=== PATIENT | female | born 1995 | race Asian ===

== ENCOUNTER 2016-04-04 13:10 | Emergency (ER) | payer OTHER ==
[~2016-04-04] VITALS: Ht 158.8 cm; Wt 54.0 kg
[2016-04-04 13:23] VITALS: TEMP 37.9; Ht 158.8 cm; Wt 54.0 kg
[2016-04-04] MEDS ORDERED: SODIUM CHLORIDE 0.9% 1000ML 1,000 ML IV STA (16:07)
[2016-04-04] MEDS ORDERED: ACETAMINOPHEN 325 MG TAB PO STA (16:07)
[2016-04-04 16:29] LABS: URINE APPEARANCE CLEAR (CLEAR); URINE BILIRUBIN NEG (NEG); URINE COLOR YELLOW; URINE EPITHELIAL CELL AUTO >30 /lpf (0-5); URINE NITRITE NEG (NEG); URINE SPECIFIC GRAVITY 1.007 (1.000-1.030); UROBILINOGEN NEG (NEG)
[2016-04-04] MEDS ORDERED: MoRPHine SULFATE 4 MG/ML 1 ML CARP\\VIAL IV STA (16:32)
[2016-04-04] MEDS ORDERED: ONDANSETRON INJ 2 MG/ML 2 ML VIAL IV STA (16:32)
[2016-04-04 16:34] LABS: MANUAL MICROSCOPIC REQUIRED? NO; REVIEW REQ? YES
[2016-04-04 17:00] LABS: BASO % 0.2 %; BASO ABS # 0.01 K/uL (0-0.2); COMPLETE YES; EOS % 0.6 %; IG% 0.2 %; LYMPH % 21.6 %; LYMPH ABS # 1.41 K/uL (1.2-3.4); MEAN CELL VOLUME 81.4 fL (80-100); MEAN CORPUSCULAR HGB CONC 33.2 g/dl (32-36); MONO % 7.6 %; NEUT % 69.8 %; PLATELET COUNT 273 K/uL (130-400); RED BLOOD COUNT 4.67 M/uL (4.2-5.4); WHITE BLOOD COUNT 6.54 K/uL (4.8-10.8)
[2016-04-04 17:07] LABS: PARTIAL THROMBOPLASTIN RATIO 1.2; PROTHROMBIN TIME (PATIENT) 10.7 SECONDS (9.0-12.0)
[2016-04-04 17:20] LABS: BUN/CREATININE RATIO 9.6 (10-20); CREATININE 0.94 mg/dl (0.60-1.20); POTASSIUM 3.4 mmol/L (3.5-5.1)
--- NOTE | 2016-04-04 17:36 | DIAGNOSTIC IMAGING REPORT ---
RENAL ULTRASOUND HISTORY: Flank pain eval for right kidney stone COMPARISON: None. FINDINGS: Right kidney: Maximum dimension 10.6 cm. No evidence for hydronephrosis. Normal corticomedullary differentiation and cortical thickness. Left kidney: Maximum dimension 9.9 cm. No evidence for hydronephrosis. Normal corticomedullary differentiation and cortical thickness. Bladder: No bladder wall thickening. The bilateral ureteral jets were identified. IMPRESSION: Normal renal ultrasound. No evidence for hydronephrosis. No shadowing calcifications. Electronically signed by: Errol Hicks M.D. 04/04/2016 5:35 PM Dictated Date/Time: 04/04/2016 5:34 PM
[2016-04-04] MEDS ORDERED: CEFTRIAXONE SOD INJ 1 GM ADDVIAL IV STA (18:01)
[2016-04-04] MEDS ORDERED: AMOX875T PO (18:03)
--- NOTE | 2016-04-04 18:22 | EMERGENCY ROOM VISIT NOTE ---
History Report prepared by Sarah: Gem Thompson Under the Supervision of: Dr. Romeo Gamino M.D. First contact with patient: 15:55 Chief Complaint: FEVER Stated Complaint: FEVER, UTI, RT SIDE PAIN History of Present Illness The patient is a 21 year old female who presents to the Emergency Room with complaints of right sided flank pain that began around 1200 yesterday. She currently rates her discomfort as a 6/10 in severity. The patient states that the pain has been persistent. She states that she took Advil around 0200 which slightly alleviated her symptoms. The patient denies any history of kidney stones. She states that the pain has been so severe that it has caused her to have difficulty sleeping. The patient states that she woke up this morning with a fever. She additionally notes a headache from the fever and chills. The patient denies any cough, vomiting, body aches, or pain with urination. The patient states that in February she was treated with Cipro for seven days for a UTI that showed Leukocytes, nitrates, blood, and grew out Ecoli that is pansensitive. She states that yesterday she visited [facility] and gave a UA that showed 2+ Leukocytes and greater than 30 white blood cells and was prescribed Macrobid. 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 Source of History: patient Onset: 1200 yesterday Position: other (right flank) Symptom Intensity: 6/10 Timing: other (persistent) Associated Symptoms: + chills, + fevers, + headache, No cough, No vomiting Review of Systems See HPI for pertinent positives & negatives. A total of 10 systems reviewed and were otherwise negative. Past Medical & Surgical Medical Problems: (1) Hepatitis B Family History No pertinent family history stated. Social History Smoking Status: Never Smoker Occupation Status: [employer] student Current/Historical Medications Scheduled Amoxicillin & Pot Clavulanate (Augmentin 875-125 mg), 875 MG PO BID Allergies Coded Allergies: No Known Allergies (Unverified , 04/04/16) Physical Exam Vital Signs Date Time Temp Pulse Resp B/P Pulse Ox O2 Delivery O2 Flow Rate FiO2 04/04/16 17:51 83 18 94/55 96 Room Air 04/04/16 16:09 115 16 128/77 98 Room Air 04/04/16 13:23 37.9 100 18 124/85 95 Room Air Physical Exam Constitutional: Vital signs reviewed. Eyes: Pupils are equal round reactive to light. Conjunctiva are noninjected. ENT: Pharynx is clear without erythema or exudate. Mucous membranes are moist. Neck supple without meningeal signs. Respiratory: Clear to auscultation bilaterally. Breath sounds are equal bilaterally. Cardiovascular: Regular rate and rhythm. No rubs or gallops. GI: Soft, nondistended and nontender. Bowel sounds are present. Musculoskeletal: No peripheral edema. No CVA tenderness. Integumentary: No cyanosis. Neurological: The patient is awake and alert. No focal deficits. Psychiatric: Normal affect. Medical Decision & Procedures ER Provider Diagnostic Interpretation: US results as stated below per my review and radiologist interpretation. RENAL ULTRASOUND HISTORY: Flank pain eval for right kidney stone COMPARISON: None. FINDINGS: Right kidney: Maximum dimension 10.6 cm. No evidence for hydronephrosis. Normal corticomedullary differentiation and cortical thickness. Left kidney: Maximum dimension 9.9 cm. No evidence for hydronephrosis. Normal corticomedullary differentiation and cortical thickness. Bladder: No bladder wall thickening. The bilateral ureteral jets were identified. IMPRESSION: Normal renal ultrasound. No evidence for hydronephrosis. No shadowing calcifications. Electronically signed by: Errol Hicks M.D. 04/04/2016 5:35 PM Dictated Date/Time: 04/04/2016 5:34 PM Laboratory Results 04/04/16 16:33 Red Blood Count 4.67, Mean Corpuscular Volume 81.4, Mean Corpuscular Hemoglobin 27.0, Mean Corpuscular Hemoglobin Concent 33.2, Mean Platelet Volume 11.0, Neutrophils (%) (Auto) 69.8, Lymphocytes (%) (Auto) 21.6, Monocytes (%) (Auto) 7.6, Eosinophils (%) (Auto) 0.6, Basophils (%) (Auto) 0.2, Neutrophils # (Auto) 4.57, Lymphocytes # (Auto) 1.41, Monocytes # (Auto) 0.50, Eosinophils # (Auto) 0.04, Basophils # (Auto) 0.01 04/04/16 16:33 Test 04/04/16 16:12 04/04/16 16:33 Urine Color YELLOW Urine Appearance CLEAR (CLEAR) Urine pH 6.0 (4.5-7.5) Urine Specific [place] 1.007 (1.000-1.030) Urine Protein NEG (NEG) Urine Glucose (UA) NEG (NEG) Urine Ketones NEG (NEG) Urine Occult Blood 1+ (NEG) Urine Nitrite NEG (NEG) Urine Bilirubin NEG (NEG) Urine Urobilinogen NEG (NEG) Urine Leukocyte Esterase MODERATE (NEG) Urine WBC (Auto) 10-30 /hpf (0-5) Urine RBC (Auto) 5-10 /hpf (0-4) Urine Hyaline Casts (Auto) 1-5 /lpf (0-5) Urine Epithelial Cells (Auto) >30 /lpf (0-5) Urine Bacteria (Auto) NEG (NEG) Urine Renal Epithelial Cells /lpf (0-5) Urine Test NEG (NEG) White Blood Count 6.54 K/uL (4.8-10.8) Red Blood Count 4.67 M/uL (4.2-5.4) Hemoglobin 12.6 g/dL (12.0-16.0) Hematocrit 38.0 % (37-47) Mean Corpuscular Volume 81.4 fL (80-100) Mean Corpuscular Hemoglobin 27.0 pg (25-34) Mean Corpuscular Hemoglobin Concent 33.2 g/dl (32-36) Platelet Count 273 K/uL (130-400) Mean Platelet Volume 11.0 fL (7.4-10.4) Neutrophils (%) (Auto) 69.8 % Lymphocytes (%) (Auto) 21.6 % Monocytes (%) (Auto) 7.6 % Eosinophils (%) (Auto) 0.6 % Basophils (%) (Auto) 0.2 % Neutrophils # (Auto) 4.57 K/uL (1.4-6.5) Lymphocytes # (Auto) 1.41 K/uL (1.2-3.4) Monocytes # (Auto) 0.50 K/uL (0.11-0.59) Eosinophils # (Auto) 0.04 K/uL (0-0.5) Basophils # (Auto) 0.01 K/uL (0-0.2) RDW Standard Deviation 41.3 fL (36.4-46.3) RDW Coefficient of Variation 13.9 % (11.5-14.5) Immature Granulocyte % (Auto) 0.2 % Immature Granulocyte # (Auto) 0.01 K/uL (0.00-0.02) Prothrombin Time 10.7 SECONDS (9.0-12.0) Prothromb Time International Ratio 1.0 (0.9-1.1) Activated Partial Thromboplast Time 30.8 SECONDS (21.0-31.0) Partial Thromboplastin Ratio 1.2 Anion Gap 11.0 mmol/L (3-11) Est Creatinine Clear Calc Drug Dose 76.0 ml/min Estimated GFR () 99.8 Estimated GFR (Non- 86.1 BUN/Creatinine Ratio 9.6 (10-20) Calcium Level 9.0 mg/dl (8.5-10.1) Total Bilirubin 0.5 mg/dl (0.2-1) Direct Bilirubin 0.2 mg/dl (0-0.2) Aspartate Amino Transf (AST/SGOT) 20 U/L (15-37) Alanine Aminotransferase (ALT/SGPT) 30 U/L (12-78) Alkaline Phosphatase 59 U/L (45-117) Total Protein 8.1 gm/dl (6.4-8.2) Albumin 3.9 gm/dl (3.4-5.0) Lipase 140 U/L (73-393) Laboratory results as reviewed by me. Medications Administered Medications (Trade) Dose Ordered Sig/Laney Route Start Time Stop Time Status Last Admin Dose Admin Sodium Chloride (Nss 1000ml) 1,000 ml @ 999 mls/hr Q1H1M STAT IV 04/04/16 16:07 04/04/16 17:07 DC 04/04/16 16:40 999 MLS/HR Acetaminophen (Tylenol Tab) 650 mg NOW STAT PO 04/04/16 16:07 04/04/16 16:10 DC 04/04/16 16:41 650 MG Morphine Sulfate (MoRPHine SULFATE INJ) 4 mg NOW STAT IV 04/04/16 16:32 04/04/16 16:33 DC 04/04/16 16:41 4 MG Ondansetron HCl (Zofran Inj) 4 mg NOW STAT IV 04/04/16 16:32 04/04/16 16:33 DC 04/04/16 16:40 4 MG ED Course 1558: The patient was evaluated in room B4B. A complete history and physical exam was performed. 1607: Ordered Tylenol Tab 650 mg PO, Sodium Chloride 1000 ml @ 999 mls/hr IV. 1632: Ordered Zofran Inj 4 mg IV, Morphine Sulfate 4 mg IV. 1756: I reevaluated the patient and she states that she is feeling much better. I discussed the limitations of the ultrasound and she feels like she can go home without pain medications. She is going to switch antibiotics from Macrobid to Augmentin based on her previous culture. She verbalized complete understanding and agreement. She is ready to go home. 180: Ordered Rocephin Inj 1 gm IV. Medical Decision This is a 21-year-old female who presents with fever and flank pain. Differential diagnosis includes kidney stone, hydronephrosis, UTI, pyelonephritis, strain. I did perform a limited focused review of portions of the patient's old chart on the electronic medical record. The patient has had no prior visits. I did evaluate the patient as noted above. The patient is presenting with right- sided flank pain since yesterday. She has been on Macrobid for 2 days for a UTI. She did have a UTI last month and was treated with Cipro at that time. I did review the sensitivities of her culture which grew out Escherichia coli. IV access was established. I did treat her with normal saline IV, Tylenol orally and morphine and Zofran IV. I did order and personally review the patient's urinalysis as described above. A urine culture was sent. I did treat her with IV ceftriaxone. I did order and review the patient's blood work as noted in the electronic medical record. Her white blood cell count is not elevated. LFTs are unremarkable. I did order an ultrasound of the kidneys. I did review the images myself as well as the radiology report as described above. There is no evidence of hydronephrosis or kidney stone.I did reassess the patient. She is feeling better at this time. I did discuss the test results with her. She did feel well enough for discharge and did not wish to be hospitalized. She did not wish to have any pain medications to go home with. She will take Tylenol instead. I did recommend she stop the Macrobid. She was placed on Augmentin for 10 days and advised follow closely with her doctor or [facility]. She was given return instructions as outlined below. Impression Primary Impression: Pyelonephritis Scribe Attestation The scribe's documentation has been prepared under my direct and personally reviewed by me in its entirety. I confirm that the note above accurately reflects all work, treatment, procedures, and medical decision making performed by me. Departure Information Dispostion Home / Self-Care Prescriptions Amoxicillin & Pot Clavulanate (Augmentin 875-125 mg) 1 Tab Tab 875 MG PO BID, #20 TAB Prov: Romeo Gamino M.D. 04/04/16 Referrals No Doctor, Assigned (PCP) Forms HOME CARE DOCUMENTATION FORM, IMPORTANT VISIT INFORMATION, School Instructions Patient Instructions My [facility], Pyelonephritis Dc Additional Instructions You have been examined and treated today on an emergency basis only. This is not a substitute for, or an effort to provide, complete comprehensive medical care. It is impossible to recognize and treat all injuries or illnesses in a single emergency department visit. It is therefore important that you follow up closely with [facility]. Call as soon as possible for an appointment. Return for worsening symptoms or if you develop fever, vomiting, or any other concerning symptoms. Take Tylenol for pain. Avoid NSAIDs such as Motrin. Stop Macrobid. Take Augmentin instead. Take probiotics or eat yogurt to avoid diarrhea.
[2016-04-04 19:06] VITALS: BP 104/57; PULSE 0; O2SAT 98
--- NOTE | 2016-04-06 13:57 | Pharmacy Progress Note ---
ED Pharmacist Culture FollowUp Date of Service: Apr 06, 2016. Very low CFU/mL of Gram positive cocci in urine culture - no speciation or sensitivity to follow. Patient was switched from Macrobid (prescribed by [facility]) to Augmentin 2nd concern for pyelonephritis and instructed to follow-up with S (who obtained a UA the day prior). No further intervention required at this time. Case discussed with Dr. Gamino.
== END 2016-04-04 19:08 | disposition home or self-care (01) ==
LOC: C.EDB 13:21
DX: N12 Tubulo-interstitial nephritis, not specified as acute or chronic (principal); B19.10 Unspecified viral hepatitis B without hepatic coma